=== PATIENT | female | born 1980 | race African-American/Black ===

== ENCOUNTER 2018-01-03 09:08 | Observation (INO) ==
[2018-01-02 13:43] LABS: Apearance,Urine CLEAR (Clear); Bacteria,Urine Occasional /HPF (Few); Bilirubin,Urine Negative (Negative); Blood, Urine Negative (Negative); Glucose,Urine (UA) Negative (Negative); Ketones,Urine Negative (Negative); Mucus,Urine Occasional /LPF (Occasional); Nitrite,Urine Negative (Negative); Protein,Urine Negative; RBC,Urine <1 /HPF (0-4); Squamous Epithelial Cell,Urine Occasional /HPF (0-10); Urine Color Yellow (Yellow); Urine Specific Gravity 1.015 (1.001-1.035); Urine Urobilinogen < 2.0 EU/DL (0.2-1.0); WBC,Urine 4 /HPF (0-6)
[2018-01-02 13:44] LABS: Basophils % 0.4 % (0.0-0.8); Eosinophils % 0.4 % (0.00-10.9); Hematocrit 18.6 VOL% (35.7-47.0); Hemoglobin 5.5 GM/DL (12.0-16.0); Immature Granulocytes % 0.5 %; Immature Granulocytes Absolute 0.03 #; Lymphocytes # 2.1 10*3/uL (1.4-4.0); Lymphocytes % 36.8 % (21.3-54.2); Mean Corpuscular HGB Conc 29.6 GM/DL (32-36); Mean Corpuscular Hemoglobin 24 PG (27-34); Mean Corpuscular Volume 82.7 FL (87-102); Mean Platelet Volume 9.1 FL (9.6-12.0); Monocytes # 0.5 10*3/uL (0.11-0.8); Monocytes % 8.4 % (1.7-12.7); NRBC # 0.02 10*3/uL; Neutrophils % 53.5 % (38.7-73.9); Platelet Count 314 T/CUMM (130-400); Red Cell Distribution Width 16.2 % (9.3-17.3); White Blood Count 5.6 T/CUMM (4-12)
[2018-01-02 13:54] LABS: Red Blood Count 2.25 MC/CUMM (3.8-5.5)
[2018-01-02 14:32] LABS: Albumin 3.3 G/DL (3.4-5.0); Bilirubin,Total 0.7 MG/DL (0.2-1.0); Calcium 8.5 MG/DL (8.5-10.1); Osmolality,Calculated 274.5 MOS/KG (273-304); Potassium 4.1 MMOL/L (3.5-5.1); Total Protein 7.3 G/DL (6.4-8.3)
[2018-01-02 15:02] LABS: HIV Antigen/Antibody Result Nonreactive (Nonreactive)
[2018-01-03] MEDS ORDERED: SODIUM CHLORIDE 0.9% 1,000 ML IV PRN ×4 (09:14→10:50)
[2018-01-03] MEDS ORDERED: ACETAMINOPHEN 325 MG/10.15 ML UDCUP PO PRN (11:31)
[2018-01-03 13:46] LABS: Apearance,Urine CLEAR (Clear); Bilirubin,Urine Negative (Negative); Blood, Urine Negative (Negative); Glucose,Urine (UA) Negative (Negative); Ketones,Urine Negative (Negative); Mucus,Urine Occasional /LPF (Occasional); Nitrite,Urine Negative (Negative); Protein,Urine Negative; RBC,Urine <1 /HPF (0-4); Squamous Epithelial Cell,Urine Occasional /HPF (0-10); Urine Color Straw (Yellow); Urine Urobilinogen < 2.0 EU/DL (0.2-1.0); WBC,Urine 2 /HPF (0-6)
[2018-01-03] MEDS ORDERED: LACTATED RINGERS 1,000 ML IV SCH (18:00)
[2018-01-03] MEDS ORDERED: SODIUM PHOSPHATE ENEMA 133 ML BOTTLE RECTAL ONE (21:00)
[2018-01-03 21:30] LABS: Hematocrit 28.3 VOL% (35.7-47.0); Hemoglobin 9.1 GM/DL (12.0-16.0)
[2018-01-04 06:42] LABS: Basophils # 0.1 10*3/uL (0.0-0.2); Basophils % 0.7 % (0.0-0.8); Eosinophils # 0.1 10*3/uL (0.0-0.87); Eosinophils % 0.7 % (0.00-10.9); Hematocrit 37.9 VOL% (35.7-47.0); Immature Granulocytes % 0.6 %; Immature Granulocytes Absolute 0.05 #; Lymphocytes # 1.9 10*3/uL (1.4-4.0); Lymphocytes % 23.3 % (21.3-54.2); Mean Corpuscular HGB Conc 31.7 GM/DL (32-36); Mean Corpuscular Hemoglobin 27 PG (27-34); Mean Corpuscular Volume 83.8 FL (87-102); Mean Platelet Volume 9.3 FL (9.6-12.0); Monocytes # 0.6 10*3/uL (0.11-0.8); Monocytes % 6.8 % (1.7-12.7); NRBC # 0.04 10*3/uL; Neutrophils # 5.6 10*3/uL (1.4-7.4); Neutrophils % 67.9 % (38.7-73.9); Platelet Count 354 T/CUMM (130-400); Red Blood Count 4.52 MC/CUMM (3.8-5.5); Red Cell Distribution Width 15.6 % (9.3-17.3); White Blood Count 8.2 T/CUMM (4-12)
[2018-01-04] MEDS ORDERED: DEXAMETHASONE 10 MG/1 ML VIAL ONE (10:11)
[2018-01-04] MEDS ORDERED: LIDOCAINE 1% 5 ML VIAL ONE (10:11)
[2018-01-04] MEDS ORDERED: PROPOFOL 200 MG/20 ML VIAL IV ONE (10:11)
[2018-01-04] MEDS ORDERED: fentaNYL 100 MCG/2 ML VIAL ONE (10:11)
[2018-01-04] MEDS ORDERED: KETOROLAC 30 MG/1 ML VIAL ONE (10:12)
[2018-01-04] MEDS ORDERED: SEVOFLURANE 1 UNIT/15 MINUTE INH ONE (10:12)
[2018-01-04] MEDS ORDERED: ONDANSETRON 4 MG/2 ML VIAL ONE (10:12)
[2018-01-04 11:54] VITALS: BP 107/67
[2018-01-12 13:11] LABS: Reason for Referral fetal demise
== END 2018-01-04 13:15 | disposition home or self-care (01) ==
LOC: INTOOBSV 09:08 → N.OB 09:08 → EDSTATUS 01-04 09:30
PROVIDERS: ADMIT Obstetrics & Gynecology; ATTEND Obstetrics & Gynecology